=== PATIENT | male | born 1990 | race Caucasian/White ===

== ENCOUNTER 2019-04-08 21:34 | Emergency (ER) | payer BC ==
[2019-04-08] MEDS ORDERED: Fluorescein Sodium TOPICAL* 1 MG TEST STRIP OPHTHALMIC ONE (21:52)
[2019-04-08] MEDS ORDERED: Tetracaine 0.5% OPTH.SOL 4 ML* 1 DROP BTL LEFT EYE ONE (21:53)
[2019-04-08 21:55] VITALS: BP 136/85
[2019-04-08] MEDS ORDERED: Tobramycin 0.3% OPHTH.SOL* 5 ML BOT (regular eye drops) LEFT EYE ONE (22:11)
--- NOTE | 2019-04-08 22:13 | UC ---
Eye Complaint HPI - HPI Summary HPI Summary: Patient is 28-year-old male presenting with for complaint of possible foreign body in his left eye since 2029 tonight. Patient states he was just sitting on the couch when he began to feel discomfort in his eye. He states he tried flushing it with water without relief. Patient states he "is a baby when it comes to his eyes so when he couldn't get it out he just came here." Denies contact lens use. States he was snow blowing and working outside before sitting on his couch when this happened so thinks "maybe there is something from outside that fell into his eye from his hair or something." - History of Current Complaint Chief Complaint: UCEye Stated Complaint: EYE COMPLAINT Hx Obtained From: Patient Onset/Duration: Sudden Onset Timing: Constant Severity Currently: Moderate Pain Intensity: 6 Pain Scale Used: 0-10 Numeric - Allergies/Home Medications Allergies/Adverse Reactions: Allergies Allergy/AdvReac Type Severity Reaction Status Date / Time No Known Allergies Allergy Verified 04/08/19 21:46 Home Medications: Home Medications Levocetirizine Dihydrochloride [Xyzal Allergy 24Hr] 5 mg PO DAILY 04/08/19 [ History Confirmed 04/08/19] buPROPion TAB* [Wellbutrin TAB*] 75 mg PO DAILY 04/08/19 [History Confirmed 09/20] PMH/Surg Hx/FS Hx/Imm Hx Previously Healthy: Yes - Surgical History Surgical History: Yes Surgery Procedure, Year, and Place: Left ankle - Family History Known Family History: Positive: Non-Contributory - Social History Alcohol Use: Occasionally Substance Use Type: None Smoking Status (MU): Never Smoked Tobacco Review of Systems All Other Systems Reviewed And Are Negative: No Eyes: Positive: Eye Redness - L eye, Other - foreign body sensation in L eye. Negative: Blurred Vision, Photophobia ENT: Positive: Negative Respiratory: Positive: Negative Cardiovascular: Positive: Negative Musculoskeletal: Positive: Negative Neurological: Positive: Negative Psychological: Positive: Negative Physical Exam Triage Information Reviewed: Yes Appearance: Well-Appearing, No Pain Distress, Well-Nourished Vital Signs: Initial Vital Signs Temp 97.7 F 04/08/19 21:48 Pulse 72 04/08/19 21:48 Resp 16 04/08/19 21:48 BP 136/85 04/08/19 21:48 Pulse Ox 100 04/08/19 21:48 Vital Signs Reviewed: Yes Eye Exam: Other - PERRLA. EOM intact Eyes: Positive: Conjunctiva Inflamed - L eye, Other: - fluorescein stain revealed small corneal abrasion of L eye. Negative: Discharge ENT: Positive: Hearing grossly normal Respiratory: Positive: No respiratory distress Neurological: Positive: Alert Psychological: Positive: Age Appropriate Behavior Eye Complaint Course/Dx - Course Course Of Treatment: I applied tetracaine to patient L eye to provide relief of discomfort and to do fluorescein staining. Fluorescein stain revealed ~2mm corneal abrasion. No foreign body found in L eye. I treated patient with tobramycin drops to prevent infection. Instructed to take NSAIDS for pain relief until abrasion heals. Instructed to follow up with PCP or ophtho if symptoms persist or worsen. Patient voiced understanding and agreed with treatment plan. - Differential Dx/Diagnosis Differential Diagnosis/HQI/PQRI: Foreign Body Provider Diagnosis: Corneal abrasion, left Discharge ED - Sign-Out/Discharge Documenting (check all that apply): Patient Departure All imaging exams completed and their final reports reviewed: No Studies - Discharge Plan Condition: Stable Disposition: HOME Patient Education Materials: Corneal Abrasion (ED) Referrals: Terra Chen NP [Primary Care Provider] - If Needed Laila Brown MD [Medical Doctor] - If Needed Additional Instructions: Place 1-2 drops of the antibiotic eye drop in the left eye three times daily for 5 days. The eye should heal without further treatment within a few days. Follow up with your PCP or the ophthalmology referral listed below if symptoms worsen or do not resolve within the next 5 days. - Billing Disposition and Condition Condition: STABLE Disposition: Home - Attestation Statements Provider Attestation: I was available for consult. This patient was seen by the FAISAL. The patient was not presented to, seen by, or examined by me. -Nelli
== END 2019-04-08 22:22 | disposition home or self-care (01) ==
LOC: UCCORT 21:34
DX: S05.02XA Injury of conjunctiva and corneal abrasion without foreign body, left eye, initial encounter (principal); X58.XXXA Exposure to other specified factors, initial encounter; Y92.9 Unspecified place or not applicable
CPT/HCPCS: 99212; A9270-GY; G0463